=== PATIENT | female | born 1955 | race Caucasian/White ===

== ENCOUNTER → 2018-05-17 | Outpatient (CLI) | payer BC, OTHER | LOC: RAD 09:03 | DX: K44.9 Diaphragmatic hernia without obstruction or gangrene (principal) ==

== ENCOUNTER → 2018-06-13 | Outpatient (CLI) | payer BC, OTHER ==
[~2018-06-13] VITALS: Ht 167.6 cm; Wt 81.2 kg
[~2018-06-13] MED LIST: CALCIUM 600 +1 EAC1 PO; CENTRUM SILVER1 EAC4 PO; ESCITALOPRAM OX20 MG PO; IRON18 M1 PO; LAMICTAL XR100 MG PO; NEURONTIN 300300 M1 PO; OMEPRAZOLE 20 M20 M1 PO; SYNTHROID50 MCG PO; TRAZODONE 150150 M1 PO; VENTOLIN HFA 1818 GM INH; VITAMIN E400 UNIT PO
--- NOTE | ~2018-06-13 | O ---
[facility] [place] [address] OPERATIVE REPORT Name: VICTORINA LAWRENCE Faith Room #: REG [facility]#: [id number] Admission: 06/13/18 Attend Phys: Yenni Todd MD, Discharge: Date of : 55 Report #: [id number] THIS REPORT FOR: //name// CC: Lizeth Todd DATE OF SERVICE: 06/13/2018 PREOPERATIVE DIAGNOSES: 1. Hiatal hernia. 2. Gastroesophageal reflux disease. POSTOPERATIVE DIAGNOSES: 1. Hiatal hernia. 2. Gastroesophageal reflux disease. PROCEDURE: Thorough esophagogastroduodenoscopy (EGD). SURGEON: eYnni Todd M.D. FIELD STAFF MANAGER: None. ANESTHESIA: Monitored anesthesia care. ESTIMATED BLOOD LOSS: None. COMPLICATIONS: None. SPECIMENS: None. INDICATIONS: The patient is a 63-year-old female with severe longstanding medically recalcitrant GERD who is being seen for evaluation for possible antireflux surgery. As such, indication was for EGD today. DESCRIPTION OF PROCEDURE: After explaining the risks, benefits and alternatives of the procedure with the patient in detail and obtaining consent, the patient was brought to the endoscopy suite supine on her hospital cart. After conducting a thorough timeout procedure, verifying correct patient and procedure, the patient was given monitored anesthesia care and positioned in the left lateral decubitus position. The [employer]inon upper endoscope was used to intubate the oropharynx, was easily traversed down into the stomach past the pylorus to the second portion of the duodenum. Slow careful withdrawal of the scope showed no evidence of duodenitis, gastritis, esophagitis, mass lesions or ulcerations. Retroflexion view of the scope within the gastric lumen did show evidence of a large hiatal hernia. The scope was straightened out and slowly withdrawn in the distal esophagus and the esophagus itself was very tortuous at [facility] [address] [place] [address] OPERATIVE REPORT Name: VICTORINA LAWRENCE Room #: REG [facility]#: [id number] Admission: 06/13/18 Attend Phys: Yenni Todd MD, Discharge: Date of : 55 Report #: [id number] the distal aspect all consistent with a large hiatal hernia whereby I suspect a portion of her stomach is within the distal mediastinum. The patient did have a patulous lower esophageal sphincter identified as well. The stomach was fully desufflated. The scope was removed via the oropharynx, passed off the field completing the procedure. At the end of the procedure, all instrument, needle and sponge counts were correct. The patient tolerated the procedure without incident, was awakened in the endoscopy suite and transitioned to the recovery room in stable condition with no apparent complications. <ELECTRONICALLY SIGNED> By: Yenni Todd MD, FACS 06/14/18 [id number] Yenni Todd MD, FACS /nt
== END | disposition home or self-care (01) ==
LOC: GI 06:54
DX: K21.9 Gastro-esophageal reflux disease without esophagitis (principal); K44.9 Diaphragmatic hernia without obstruction or gangrene; E03.9 Hypothyroidism, unspecified; F41.9 Anxiety disorder, unspecified; J45.909 Unspecified asthma, uncomplicated; Z98.890 Other specified postprocedural states; Z79.899 Other long term (current) drug therapy; Z91.040 Latex allergy status; Z90.710 Acquired absence of both cervix and uterus; Z96.653 Presence of artificial knee joint, bilateral; Z87.19 Personal history of other diseases of the digestive system; Z88.6 Allergy status to analgesic agent
CPT/HCPCS: 62110; 62900